=== PATIENT | male | born 1950 | race Caucasian/White ===

== ENCOUNTER → 2017-12-14 | Outpatient (CLI) | payer OTHER, BC | LOC: BMCIMAGING 11:32 | PROVIDERS: ATTEND Internal Medicine Rheumatology | DX: M19.072 Primary osteoarthritis, left ankle and foot (principal); M19.071 Primary osteoarthritis, right ankle and foot; M19.042 Primary osteoarthritis, left hand; M19.041 Primary osteoarthritis, right hand; I70.0 Atherosclerosis of aorta ==

== ENCOUNTER → 2018-11-11 | Outpatient (CLI) | payer OTHER, BC | LOC: FIMAGING 08:43 | PROVIDERS: ATTEND Physician Assistant Surgical | DX: Z13.820 Encounter for screening for osteoporosis (principal); R29.890 Loss of height; Z79.899 Other long term (current) drug therapy ==